=== PATIENT | male | born 1970 | race Caucasian/White ===

== ENCOUNTER → 2022-05-14 | Day surgery (SDC) | payer OTHER ==
[~2022-05-14] MED LIST: ALPRAZOLAM1 MG PO; AMITRIPTYLINE H10 MG PO; ARTHRITIS PAIN150 GM TP; BENTYL 20MG TAB20 MG PO; BROMPHENIR-PSE118 ML PO; FLONASE ALLER15.8 ML; GABAPENTIN600 MG PO; HYDROCHLOROTH12.5 M1 PO; NAPROSYN EC 50500 MG PO; OMEPRAZOLE40 MG PO; ONE-DAILY MULT1 EACH PO; ZOLOFT50 MG PO
== END | disposition home or self-care (01) ==
LOC: OR 07:30
DX: M47.27 Other spondylosis with radiculopathy, lumbosacral region (principal); Z79.01 Long term (current) use of anticoagulants; Z79.891 Long term (current) use of opiate analgesic
CPT/HCPCS: 76000; J1040